=== PATIENT | female | born 1930 | race Caucasian/White ===

== ENCOUNTER 2019-10-14 10:31 | Day surgery (SDC) | payer OTHER, MEDICARE ==
[2019-10-13 14:23] VITALS: BMI 33.3
--- NOTE | 2019-10-14 11:13 | HP ---
Admitting History and Physical - Admission Chief Complaint: Right buttock and thigh pain History of Present Illness: Pt complains of right buttock and thigh pain here for SIJ injection. - Smoking History Smoking history: Former smoker Have you smoked in the past 12 months: No If you are a former smoker, when did you quit?: 35 yrs ago - Alcohol/Substance Use Hx Alcohol Use: No Home Medications - Allergies Allergies/Adverse Reactions: Allergies Allergy/AdvReac Type Severity Reaction Status Date / Time Penicillins Allergy Severe Itching Verified 10/13/19 14:23 - Home Medications Home Medications: Ambulatory Orders Levothyroxine [Synthroid -] 125 mcg PO DAILY 02/22/18 Simvastatin 20 mg PO DAILY 02/22/18 Triamterene/Hydrochlorothiazid [Dyazide 37.5-25 Capsule] 1 each PO DAILY Cholecalciferol (Vitamin D3) [Vitamin D3] 25 mcg PO DAILY 10/13/19 Vitamin B Complex 1 each PO DAILY 10/13/19 Physical Examination Constitutional: Yes: Well Nourished, No Distress, Calm Eyes: Yes: Conjunctiva Clear HENT: Yes: Atraumatic, Normocephalic Neck: Yes: Trachea Midline Cardiovascular: Yes: Regular Rate and Rhythm Respiratory: Yes: Regular Musculoskeletal: Yes: Back Pain, Other (SIJ TTP right) Assessment/Plan The patients pain is likley secondary to right sacroilliac joint dysfunction. 1. I will perform right SIJ injection. 2. Follow up in 2 weeks
[2019-10-14] MEDS ORDERED: LIDOCAINE HCL 1% PRESERVATIVE FREE - 30ML VIAL IJ ONE (12:58)
[2019-10-14] MEDS ORDERED: TRIAMCINOLONE ACET 40MG/1ML VIAL IM ONE (13:00)
[2019-10-14] MEDS ORDERED: BUPIVACAINE HCL/PF 0.5% (5 MG/ML) 30 ML VIAL IJ ONE (13:01)
[2019-10-14] MEDS ORDERED: IOHEXOL 180 MG/1 ML ML IJ ONE (13:01)
[2019-10-14 13:59] VITALS: BP 141/68; PULSE 50; TEMP 97.4
--- NOTE | 2019-10-15 17:19 | PROC ---
Procedure Note Procedure: Date: 10/14/2019 : 1930 Age: 89 Year(s) Sex: Female Name of the patient: Bess Smith Preoperative Diagnosis: Sacroiliac dysfunction right Postoperative Diagnosis: Same Procedure Performed: Right SIJ injection Anesthesia: local Procedure: After the risks and benefits were explained, informed consent was obtained. The patient was then taken to the procedure room and positioned prone on the procedure table. Time out was performed. The region overlying the right sacroiliac joint was identified using fluoroscopy. The skin was prepped and draped in the usual sterile fashion. The skin and soft tissues were anesthetized using 2% lidocaine. Using fluoroscopic guidance, a 22 gauge 3.5 inch spinal needle was then introduced to the inferior aspect of the posterior Right sacroiliac joint. Omnipaque 180 confirmed appropriate needle placement. 1 cc .5% bupivacaine and 1 cc Kenalog was then injected. The patient tolerated the procedure well and there were no complications. The patient was taken to the post procedure recovery area in good condition. Vital signs remained stable before, during, and after the procedure. The patient was given oral and written follow-up instructions. The patient was given a follow up appointment with me in the near future. Mic Waters DO ^
== END 2019-10-14 13:35 | disposition home or self-care (01) ==
LOC: JASU-SURG 10:31
PROVIDERS: ATTEND Pain Medicine Pain Medicine
PROC: 3E0T3BZ Introduction of Anesthetic Agent into Peripheral Nerves and Plexi, Percutaneous Approach (ICD-10-PCS; 2019-10-14)
PROC: 3E0T33Z Introduction of Anti-inflammatory into Peripheral Nerves and Plexi, Percutaneous Approach (ICD-10-PCS; principal; 2019-10-14 12:30)
DX: M53.3 Sacrococcygeal disorders, not elsewhere classified (principal)
CPT/HCPCS: 76000-TC-FY

== ENCOUNTER 2020-06-08 05:23 | Day surgery (SDC) | payer OTHER, MEDICARE ==
[2020-06-07 17:35] VITALS: BMI 33.3
[2020-06-08] MEDS ORDERED: BUPIVACAINE HCL/PF 0.25% (2.5MG/ML) 10 ML VIAL ONE (07:27)
[2020-06-08] MEDS ORDERED: LIDOCAINE HCL/PF 1% SDV 5ML VIAL ONE ×2 (07:27→10:00)
[2020-06-08] MEDS ORDERED: DEXAMETHASONE SOD PHOSPHATE/PF 10 MG/ML SDV ONE (07:27)
[2020-06-08] MEDS ORDERED: LIDOCAINE HCL 1% PRESERVATIVE FREE - 30ML VIAL NR ONE ×2 (09:51)
[2020-06-08] MEDS ORDERED: DEXAMETHASONE SOD PHOSPHATE 10 MG/1 ML VIAL IVPUSH ONE (09:51)
[2020-06-08] MEDS ORDERED: IOHEXOL 180 MG/1 ML ML IJ ONE ×2 (09:53)
[2020-06-08 10:28] VITALS: BP 141/65; PULSE 48; TEMP 97.3
== END 2020-06-08 11:00 | disposition home or self-care (01) ==
LOC: JASU-SURG 05:23
PROVIDERS: ATTEND Pain Medicine Pain Medicine
PROC: 3E0R33Z Introduction of Anti-inflammatory into Spinal Canal, Percutaneous Approach (ICD-10-PCS; principal; 2020-06-08 09:30)
DX: M54.16 Radiculopathy, lumbar region (principal); Z53.09 Procedure and treatment not carried out because of other contraindication
CPT/HCPCS: 76000-TC-FY; J1100

== ENCOUNTER 2021-03-22 04:17 | Day surgery (SDC) | payer OTHER, MEDICARE ==
[2021-03-19 16:00] VITALS: BMI 34.3
[~2021-03-22 04:17] MED LIST: DEXAMETHASONE SOD PHOSPHATE 10 MG/1 ML VIAL IM ONE; IOHEXOL 180 MG/1 ML ML IJ ONE; LIDOCAINE HCL 1% PRESERVATIVE FREE - 30ML VIAL IJ ONE
[2021-03-22] MEDS ORDERED: LIDOCAINE HCL/PF 1% SDV 5ML VIAL ONE (07:28)
[2021-03-22] MEDS ORDERED: DEXAMETHASONE SOD PHOSPHATE 4 MG/1 ML VIAL ONE (07:28)
[2021-03-22] MEDS ORDERED: LIDOCAINE HCL 1% PRESERVATIVE FREE - 30ML VIAL IJ ONE (11:11)
[2021-03-22] MEDS ORDERED: DEXAMETHASONE SOD PHOSPHATE 10 MG/1 ML VIAL IM ONE (11:15)
[2021-03-22] MEDS ORDERED: IOHEXOL 180 MG/1 ML ML IJ ONE (11:16)
[2021-03-22 11:38] VITALS: BP 118/54; PULSE 58; TEMP 97.6
== END 2021-03-22 11:43 | disposition home or self-care (01) ==
LOC: JASU-SURG 04:17
PROVIDERS: ATTEND Pain Medicine Pain Medicine
PROC: 3E0R33Z Introduction of Anti-inflammatory into Spinal Canal, Percutaneous Approach (ICD-10-PCS; 2021-03-22)
PROC: 3E0R3BZ Introduction of Anesthetic Agent into Spinal Canal, Percutaneous Approach (ICD-10-PCS; principal; 2021-03-22 09:30)
DX: M54.16 Radiculopathy, lumbar region (principal)
CPT/HCPCS: 76000-TC-FY; J1100

== ENCOUNTER 2021-04-30 04:26 | Day surgery (SDC) | payer OTHER, MEDICARE ==
[2021-04-24 15:35] VITALS: BMI 34.0
[2021-04-30] MEDS ORDERED: BUPIVACAINE HCL/PF 0.25% (2.5MG/ML) 10 ML VIAL ONE (07:16)
[2021-04-30] MEDS ORDERED: TRIAMCINOLONE ACET 40MG/1ML VIAL ONE (07:16)
[2021-04-30] MEDS ORDERED: BUPIVACAINE HCL/PF 0.5% (5MG/ML) 10 ML VIAL ONE (07:16)
[2021-04-30] MEDS ORDERED: LIDOCAINE HCL/PF 1% SDV 5ML VIAL ONE (07:16)
[2021-04-30] MEDS ORDERED: SODIUM CHLORIDE 0.9% P/F 10 ML VIAL IJ ONE (08:01)
[2021-04-30] MEDS ORDERED: BUPIVACAINE HCL/PF 0.25% (2.5MG/ML) 10 ML VIAL IJ ONE ×2 (08:56)
[2021-04-30] MEDS ORDERED: LIDOCAINE 1% P/F 10 MG/ML VIAL PNB ONE ×2 (08:56)
[2021-04-30] MEDS ORDERED: TRIAMCINOLONE ACETONIDE 40 MG/ML 10 ML VIAL NR ONE (08:57)
[2021-04-30] MEDS ORDERED: IOHEXOL 180 MG/1 ML ML IJ ONE ×2 (08:57)
[2021-04-30 10:07] VITALS: BP 132/78; PULSE 52; TEMP 98
== END 2021-04-30 09:45 | disposition home or self-care (01) ==
LOC: JASU-SURG 04:26
PROVIDERS: ATTEND Pain Medicine Pain Medicine
PROC: 3E0U33Z Introduction of Anti-inflammatory into Joints, Percutaneous Approach (ICD-10-PCS; 2021-04-30)
PROC: BQ41ZZZ Ultrasonography of Left Hip (ICD-10-PCS; 2021-04-30)
PROC: 3E0U3BZ Introduction of Anesthetic Agent into Joints, Percutaneous Approach (ICD-10-PCS; principal; 2021-04-30 08:15)
DX: M16.12 Unilateral primary osteoarthritis, left hip (principal); M25.552 Pain in left hip
CPT/HCPCS: 76000-TC-FY

== ENCOUNTER 2021-06-11 04:29 | Day surgery (SDC) | payer OTHER, MEDICARE ==
[2021-06-07 12:28] VITALS: BMI 34.3
[2021-06-11] MEDS ORDERED: BUPIVACAINE HCL/PF 0.75% 10 ML VIAL ONE ×2 (08:11→12:33)
[2021-06-11] MEDS ORDERED: BUPIVACAINE HCL/PF 0.5% (5MG/ML) 10 ML VIAL ONE (08:11)
[2021-06-11] MEDS ORDERED: LIDOCAINE HCL/PF 1% SDV 5ML VIAL ONE (08:11)
[2021-06-11] MEDS ORDERED: LIDOCAINE HCL 1%, 10 MG/ML (20ML VIAL) INF ONE (10:42)
[2021-06-11] MEDS ORDERED: IOHEXOL 180 MG/1 ML ML IJ ONE ×3 (10:42→10:47)
[2021-06-11] MEDS ORDERED: BUPIVACAINE HCL/PF 0.75% 10 ML VIAL NR ONE ×3 (10:43→10:48)
[2021-06-11 12:10] VITALS: BP 119/70; PULSE 55; TEMP 97.7
== END 2021-06-11 11:35 | disposition home or self-care (01) ==
LOC: JASU-SURG 04:29
PROVIDERS: ATTEND Pain Medicine Pain Medicine
PROC: 3E0T33Z Introduction of Anti-inflammatory into Peripheral Nerves and Plexi, Percutaneous Approach (ICD-10-PCS; 2021-06-11)
PROC: 3E0T3BZ Introduction of Anesthetic Agent into Peripheral Nerves and Plexi, Percutaneous Approach (ICD-10-PCS; principal; 2021-06-11 09:30)
DX: M47.816 Spondylosis without myelopathy or radiculopathy, lumbar region (principal)
CPT/HCPCS: 76000-TC-FY

== ENCOUNTER 2021-08-06 05:18 | Day surgery (SDC) | payer OTHER, MEDICARE ==
[2021-08-05 11:40] VITALS: BMI 34.3
[2021-08-06] MEDS ORDERED: TRIAMCINOLONE ACET 40MG/1ML VIAL ONE (07:09)
[2021-08-06] MEDS ORDERED: LIDOCAINE HCL/PF 1% SDV 5ML VIAL ONE (07:09)
[2021-08-06] MEDS ORDERED: BUPIVACAINE HCL/PF 0.5% (5MG/ML) 10 ML VIAL ONE (07:09)
[2021-08-06] MEDS ORDERED: LIDOCAINE HCL 1% PRESERVATIVE FREE - 30ML VIAL IJ ONE (08:47)
[2021-08-06] MEDS ORDERED: IOHEXOL 180 MG/1 ML ML IJ ONE (08:49)
[2021-08-06] MEDS ORDERED: BUPIVACAINE HCL/PF 0.5% (5MG/ML) 10 ML VIAL IJ ONE (08:49)
[2021-08-06] MEDS ORDERED: TRIAMCINOLONE ACETONIDE 40 MG/ML 10 ML VIAL IJ ONE (08:49)
[2021-08-06 10:48] VITALS: BP 130/54; PULSE 44; TEMP 98.8
== END 2021-08-06 09:50 | disposition home or self-care (01) ==
LOC: JASU-SURG 05:18
PROVIDERS: ATTEND Pain Medicine Pain Medicine
PROC: 3E0U3BZ Introduction of Anesthetic Agent into Joints, Percutaneous Approach (ICD-10-PCS; 2021-08-06)
PROC: 3E0U33Z Introduction of Anti-inflammatory into Joints, Percutaneous Approach (ICD-10-PCS; principal; 2021-08-06 08:30)
DX: M53.3 Sacrococcygeal disorders, not elsewhere classified (principal)
CPT/HCPCS: 76000-TC-FY

== ENCOUNTER 2021-09-24 04:33 | Inpatient (IN) | payer OTHER, MEDICARE ==
[2021-09-20 16:58] VITALS: BMI 34.1
[2021-09-24] MEDS ORDERED: MIDAZOLAM HCL 2 MG/2 ML SINGLE DOSE VIAL ONE (09:36)
[2021-09-24] MEDS ORDERED: LIDOCAINE HCL/PF 2% SDV 5ML VIAL ONE (10:00)
[2021-09-24] MEDS ORDERED: PROPOFOL 20 ML ONE ×2 (10:06→11:31)
[2021-09-24] MEDS ORDERED: ceFAZolin SODIUM 1 GM VIAL IVPB ONE (10:30)
[2021-09-24] MEDS ORDERED: LIDOCAINE 1% P/F 10 MG/ML VIAL INF ONE (10:35)
[2021-09-24] MEDS ORDERED: LIDOCAINE HCL/PF 2% SDV 5ML VIAL INF ONE (10:35)
[2021-09-24] MEDS ORDERED: ceFAZolin SODIUM 1 GM VIAL ONE (10:40)
[2021-09-24] MEDS ORDERED: GLYCOPYRROLATE 0.2 MG/1 ML VIAL ONE (12:24)
[2021-09-24] MEDS ORDERED: ONDANSETRON 4 MG/2 ML VIAL IVPUSH PRN (12:33)
[2021-09-24] MEDS: LACTATED RINGERS SOLUTION 1,000 ML IV SCH (15:22)
[2021-09-24] MEDS ORDERED: TRIAMTERENE AND HCTZ - 37.5 MG/25 MG CAPSULE PO ONE (15:49)
[2021-09-24] MEDS ORDERED: ENALAPRIL MALEATE 10 MG TABLET PO ONE (16:00)
[2021-09-24] MEDS: ACETAMINOPHEN 1000 MG/100 ML BAG IVPB SCH (18:34)
[2021-09-24 20:32] LABS: CHLORIDE 101 mmol/L (98-107); SODIUM 137 mmol/L (136-145)
[2021-09-24 20:35] LABS: ALBUMIN 2.8 g/dl (3.4-5.0); ANION GAP 9 MMOL/L (8-16); BLOOD UREA NITROGEN 21.6 mg/dL (7-18); CALCIUM 8.6 mg/dL (8.5-10.1); CO2 27 mmol/L (21-32); GLUCOSE,RANDOM 110 mg/dL (74-106); MAGNESIUM 1.6 mg/dL (1.8-2.4)
[2021-09-24 20:38] LABS: CREATININE 1.2 mg/dL (0.55-1.3); PHOSPHOROUS 3.7 mg/dL (2.5-4.9); SGOT/AST 14 U/L (15-37); SGPT/ALT 18 U/L (13-61)
[2021-09-24 20:40] LABS: BILIRUBIN,TOTAL 0.6 mg/dL (0.2-1); TOT PROT 5.4 g/dl (6.4-8.2)
[2021-09-24 20:41] LABS: ALK PHOS 65 U/L (45-117)
[2021-09-24] MEDS: GABAPENTIN 300 MG CAPSULE PO SCH (22:27)
[2021-09-24 23:20] LABS: CHOLESTEROL 122 mg/dL (50-200); TRIGLYCERIDES 138 mg/dL (0-150)
[2021-09-24 23:21] LABS: LDL CHOLESTEROL (ONLY SJRH) 56 mg/dL (5-100)
[2021-09-24 23:23] LABS: HDL CHOLESTEROL 46 mg/dL (40-60)
[2021-09-24 23:24] LABS: N-TERMINAL BNP 281.6 pg/ml (5-450)
[2021-09-25] MEDS: ACETAMINOPHEN 1000 MG/100 ML BAG IVPB SCH ×3 (00:07→13:26)
[2021-09-25] MEDS: GABAPENTIN 300 MG CAPSULE PO SCH ×2 (06:14→13:28)
[2021-09-25 07:36] LABS: BASO % 0.6 % (0-2.0); EOS % 1.9 % (0-4.5); HEMATOCRIT 36.6 % (32.4-45.2); HEMOGLOBIN 12.5 GM/dL (10.7-15.3); LYMPH % 22.2 % (8-40); MCH 31.5 pg (25.7-33.7); MCHC 34.3 g/dl (32.0-36.0); MEAN CELL VOLUME 91.9 fl (80-96); MEAN PLT VOLUME 8.5 fl (7.5-11.1); MONO % 9.7 % (3.8-10.2); NEUT % 65.6 % (42.8-82.8); PLATELET COUNT 164 10^3/uL (134-434); RBC 3.98 M/mm3 (3.60-5.2); RDW 14.4 % (11.6-15.6); WHITE BLOOD COUNT 5.7 K/mm3 (4.0-10.0)
[2021-09-25 07:57] LABS: ALBUMIN 2.8 g/dl (3.4-5.0); BLOOD UREA NITROGEN 21.2 mg/dL (7-18); CALCIUM 8.6 mg/dL (8.5-10.1); MAGNESIUM 1.7 mg/dL (1.8-2.4)
[2021-09-25 08:02] LABS: BILIRUBIN,TOTAL 0.6 mg/dL (0.2-1); TOT PROT 5.5 g/dl (6.4-8.2)
[2021-09-25] MEDS ORDERED: LEVOTHYROXINE NA 125 MCG TABLET (FP) PO SCH (10:00)
[2021-09-25] MEDS: LACTATED RINGERS SOLUTION 1,000 ML IV SCH (13:28)
[2021-09-25 14:50] VITALS: BP 128/50; PULSE 54; TEMP 98.3
== END 2021-09-25 17:27 | disposition home or self-care (01) | DRG 519 ==
LOC: JASU-SURG 04:33 → J2C 12:32 → J4W 15:14
PROVIDERS: ADMIT Pain Medicine Pain Medicine
PROC: 00NY3ZZ Release Lumbar Spinal Cord, Percutaneous Approach (ICD-10-PCS; principal; 2021-09-24 09:00)
DX: M48.062 Spinal stenosis, lumbar region with neurogenic claudication (principal); I97.191 Other postprocedural cardiac functional disturbances following other surgery; I50.30 Unspecified diastolic (congestive) heart failure; I49.5 Sick sinus syndrome; E03.9 Hypothyroidism, unspecified; E78.5 Hyperlipidemia, unspecified; E66.9 Obesity, unspecified; Z68.34 Body mass index [BMI] 34.0-34.9, adult; Y83.9 Surgical procedure, unspecified as the cause of abnormal reaction of the patient, or of later complication, without mention of misadventure at the time of the procedure; F41.9 Anxiety disorder, unspecified; I11.0 Hypertensive heart disease with heart failure; I49.3 Ventricular premature depolarization
CPT/HCPCS: 36415; 76000-TC-FY; 80053; 80061; 82550; 83735; 83880; 84100; 84439; 84443; 84484; 85025; 88304-TC; 93005; 93010; 93306-TC; 94760; 97116-GP; 97161-GP

== ENCOUNTER 2021-11-12 05:22 | Day surgery (SDC) | payer OTHER, MEDICARE ==
[2021-11-07 16:20] VITALS: BMI 32.9
[2021-11-12] MEDS ORDERED: TRIAMCINOLONE ACET 40MG/1ML VIAL ONE (07:03)
[2021-11-12] MEDS ORDERED: DEXAMETHASONE SOD PHOSPHATE 10 MG/1 ML VIAL ONE (07:04)
[2021-11-12] MEDS ORDERED: BUPIVACAINE HCL/PF 0.75% 10 ML VIAL ONE (07:04)
[2021-11-12] MEDS ORDERED: BUPIVACAINE HCL/PF 0.5% (5MG/ML) 10 ML VIAL ONE (07:04)
[2021-11-12] MEDS ORDERED: LIDOCAINE HCL/PF 1% SDV 5ML VIAL ONE (07:07)
[2021-11-12] MEDS ORDERED: SODIUM CHLORIDE 0.9% P/F 10 ML VIAL IJ ONE ×2 (07:20→07:24)
[2021-11-12] MEDS ORDERED: LIDOCAINE HCL/PF 2% SDV 5ML VIAL ONE (07:20)
[2021-11-12] MEDS ORDERED: LIDOCAINE HCL 1% PRESERVATIVE FREE - 30ML VIAL IJ ONE (08:26)
[2021-11-12] MEDS ORDERED: BUPIVACAINE HCL/PF 0.5% (5 MG/ML) 30 ML VIAL IJ ONE (08:26)
[2021-11-12] MEDS ORDERED: IOHEXOL 180 MG/1 ML ML IJ ONE (08:27)
[2021-11-12] MEDS ORDERED: TRIAMCINOLONE ACET 40MG/1ML VIAL NR ONE (08:27)
[2021-11-12 09:17] VITALS: BP 150/70; PULSE 60; TEMP 98
== END 2021-11-12 09:15 | disposition home or self-care (01) ==
LOC: JASU-SURG 05:22
PROVIDERS: ATTEND Pain Medicine Pain Medicine
PROC: 3E0U3BZ Introduction of Anesthetic Agent into Joints, Percutaneous Approach (ICD-10-PCS; 2021-11-12)
PROC: 3E0U33Z Introduction of Anti-inflammatory into Joints, Percutaneous Approach (ICD-10-PCS; principal; 2021-11-12 08:00)
DX: M53.3 Sacrococcygeal disorders, not elsewhere classified (principal); I10 Essential (primary) hypertension
CPT/HCPCS: 76000-TC-FY; J1100